=== PATIENT | male | born 1975 | race Caucasian/White ===

== ENCOUNTER 2021-11-11 22:24 | Emergency (ER) | payer OTHER ==
[2021-11-11 23:17] LABS: #Basophils 0.1 thou/uL (0.0-0.2); #Eosinphils 0.2 thou/uL (0.0-0.7); #Lymphocytes 2.9 thou/uL (1.20-3.40); #Monocytes 0.6 thou/uL (0.11-0.59); %Basophils 0.7 % (0.0-1.0); %Eosinophils 2.6 % (0.0-10.0); %Lymphocytes 37.8 % (21.0-51.0); %Neutrophils 50.9 % (42.0-75.0); Hemoglobin 16.3 g/dL (14.0-18.0); Mean Corpuscular HGB CONC 33.6 g/dL (32.0-36.0); Mean Corpuscular Hemoglobin 31.5 pg (27.0-31.0); Mean Corpuscular Volume 93.8 fL (78.0-98.0); Mean Platelet Volume 8.8 fL (7.4-10.4); Platelet Count 181 thou/uL (130-400); RBC Distribution Width 12.6 % (11.5-14.5); Red Blood Cell (RBC) Count 5.16 mill/uL (4.70-6.10); White Blood Cell (WBC) Count 7.8 thou/uL (4.8-10.8)
[2021-11-11] MEDS ORDERED: Bacitracin 1 PK ONE (23:19)
[2021-11-11 23:38] LABS: Acetaminophen Less than 10.0 mcg/mL (10.0-30.0); Alcohol Less than 10 mg/dL (Less than 10); Salicylate Less than 8.0 mg/dL (15.0-30.0)
[2021-11-11 23:39] LABS: ALT (SGPT) 34 U/L (8-55); AST (SGOT) 26 U/L (5-34); Albumin 3.9 g/dL (3.5-5.0); Alkaline Phosphatase 63 U/L (40-110); Anion Gap 12 mmol/L (10-20); BUN (Urea Nitrogen) 22 mg/dL (8.9-20.6); Bilirubin, Total 0.6 mg/dL (0.2-1.2); Calc. Creatinine Clearance 0 mL/min (70-130); Calcium 9.4 mg/dL (7.8-10.44); Carbon Dioxide 28 mmol/L (22-29); Chloride 103 mmol/L (98-107); Globulin 2.9 g/dL (2.4-3.5); Glucose 95 mg/dL (70-105); Potassium 3.5 mmol/L (3.5-5.1); Protein, Total 6.8 g/dL (6.0-8.3); Sodium 139 mmol/L (136-145)
[2021-11-12 00:23] LABS: SARS-CoV-2 NAA Rapid Test Not Detected (NotDetected)
[2021-11-12 01:18] LABS: Amphetamine Not Detected (NotDetected); Barbiturates Screen Not Detected (NotDetected); Benzodiazepine Screen Detected (NotDetected); Cocaine Metabolite Screen Not Detected (NotDetected); Methadone Not Detected (NotDetected); Methamphetamine Not Detected (NotDetected); Opiate Screen Not Detected (NotDetected); Oxycodone Screen Not Detected (NotDetected); Phencyclidine (PCP) Not Detected (NotDetected); THC/Cannabinoid Screen Detected (NotDetected); Tricyclic Screen Detected (NotDetected)
[2021-11-12] MEDS ORDERED: Ketamine 50 MG/ML (10ML VIAL) ONE (04:12)
[2021-11-12] MEDS ORDERED: Ziprasidone 20 MG VIAL ONE ×2 (08:58→20:19)
[2021-11-12] MEDS ORDERED: Lorazepam 2 MG/ML VIAL ONE (20:01)
[2021-11-12] MEDS ORDERED: Sterile Water 10 ML ONE (20:21)
[2021-11-13] MEDS ORDERED: Gabapentin 400 MG CAP PO SCH (18:00)
[2021-11-13] MEDS ORDERED: Ziprasidone 20 MG CAP ONE (19:28)
[2021-11-13] MEDS ORDERED: diphenhydrAMINE 25 MG CAP ONE (19:53)
[2021-11-13] MEDS ORDERED: traZODone HCl 50 MG TAB ONE (23:58)
[2021-11-14] MEDS ORDERED: traZODone HCl 50 MG TAB PO PRN (08:24)
[2021-11-14] MEDS ORDERED: Acetaminophen 325 MG TAB PO PRN (08:27)
[2021-11-14] MEDS ORDERED: Gabapentin 100 MG CAP PO SCH (08:30)
[2021-11-14] MEDS ORDERED: Rivaroxaban 10 MG TAB PO SCH (08:30)
[2021-11-14] MEDS ORDERED: Ziprasidone 20 MG CAP PO SCH (08:30)
[2021-11-14] MEDS ORDERED: diphenhydrAMINE 25 MG CAP PO SCH (08:30)
[2021-11-14] MEDS ORDERED: Levothyroxine Sodium 100 MCG TAB PO SCH (08:30)
[2021-11-14] MEDS ORDERED: Gabapentin 400 MG CAP PO SCH (08:30)
[2021-11-14] MEDS ORDERED: Ziprasidone 20 MG VIAL ONE (15:05)
[2021-11-14] MEDS ORDERED: Lorazepam 2 MG/ML VIAL ONE (15:05)
== END 2021-11-14 15:30 | disposition short-term general hospital (02) ==
LOC: ERS 22:24
DX: F32.A Depression, unspecified (principal); E03.9 Hypothyroidism, unspecified; Z79.899 Other long term (current) drug therapy
CPT/HCPCS: 36415; 80053; 80306; 80307; 84443; 85025; 93005; 96372; J2060; J3486; U0002